=== PATIENT | female | born 1995 | race African-American/Black ===

== ENCOUNTER 2017-06-14 07:59 | Observation (INO) ==
[2017-06-14 08:39] LABS: Apearance,Urine Slightly Hazy (Clear); Bilirubin,Urine Negative (Negative); Blood, Urine Negative (Negative); Glucose,Urine (UA) Negative (Negative); Ketones,Urine Negative (Negative); Mucus,Urine Few /LPF (Occasional); Nitrite,Urine Negative (Negative); Protein,Urine 30 MG/DL; RBC,Urine 13 /HPF (0-4); Squamous Epithelial Cell,Urine Occasional /HPF (0-10); Urine Color Yellow (Yellow); Urine Specific Gravity 1.019 (1.001-1.035); Urine Urobilinogen < 2.0 EU/DL (0.2-1.0); WBC,Urine 29 /HPF (0-6)
[2017-06-14] MEDS ORDERED: ONDANSETRON 4 MG/2 ML VIAL IV PRN (09:09)
[2017-06-14] MEDS ORDERED: cefTRIAXone 1,000 MG in SODIUM CHLORIDE 0.9% 100 ML IV ONE (09:09)
[2017-06-14] MEDS: LACTATED RINGERS 1,000 ML IV SCH ×3 (09:20→21:36)
[2017-06-14] MEDS ORDERED: NIFEdipine 10 MG CAPSULE ONE (10:37)
[2017-06-14] MEDS: NIFEdipine 10 MG CAPSULE PO SCH ×4 (10:39→23:44)
--- NOTE | 2017-06-14 11:13 | OB/GYN History & Physical ---
History of Present Illness Chief complaint: Abdominal pain History of present illness: Ms. Ruiz is a 22 year old female at 34 wks who came in this morning with a 24 hour h/o abdominal pain N/ V. UTI noted on admission with uterine irritability. uneventful to this point. H/o twin delivery. Current with twins. Pt has received a dose of IV Rocephin, Zofran and IVF. Feels better. Advised her that I would like her to stay overnight to receive another dose and go home tomorrow with Macrobid. Amenable Home Medications Medication Instructions Recorded Confirmed Type Folic Acid Tab 1 mg PO QAM 01/28/17 06/14/17 History NIFEdipine CAP [Procardia] 1 tablet PO Q6HR 06/03/17 06/14/17 History Vit No.130/Iron/Folic 1 each PO DAILY 06/10/17 06/14/17 History [ Vitamins] Allergies Allergy/AdvReac Type Severity Reaction Status Date / Time No Known Allergies Allergy Verified 06/03/17 10:14 Medical,Surgical,& Family Hx - Medical History Other: History of: Miscellaneous Medical Problems (BREAST AUGMENTATION) - Surgical History Reproductive Surgeries: Surgical HX of;: Section (TWIN DELIVERY) - Family History Family History: Reports;: Family Diabetes - Social History Smoking Status: Never smoker Exam [employer] - Constitutional General appearance: normal weight, no acute distress - Head Head exam: Present: normal inspection, normocephalic - Eye Eye exam: Present: EOMI - Respiratory Respiratory exam: Present: clear to auscultation bilaterally - Cardiovascular Cardiovascular exam: Present: regular rate and rhythm - GI/Abdominal GI/Abdominal exam: Present: soft, other (Irritability) Assessment and Plan (1) 34 weeks gestation of Status: Acute Current Visit: Yes (2) Twin gestation in third trimester Status: Acute Current Visit: Yes (3) UTI (urinary tract infection) Status: Acute Assessment and plan: Additional dose of Rocephin in am Home tomorrow with Macrobid 23 hour obs Current Visit: Yes
[2017-06-14] MEDS ORDERED: MAGNESIUM HYDROXIDE SUSP 30 ML UDCUP PO ONE (11:49)
[2017-06-15] MEDS: NIFEdipine 10 MG CAPSULE PO SCH (06:22)
[2017-06-15] MEDS: LACTATED RINGERS 1,000 ML IV SCH (06:23)
[2017-06-15 08:28] VITALS: BP 106/69
[2017-06-15] MEDS ORDERED: cefTRIAXone 1,000 MG in SODIUM CHLORIDE 0.9% 100 ML IV ONE (09:00)
--- NOTE | 2017-06-15 09:40 | Discharge Summary ---
Hospital Course - Hospital Course Hospital Course: Pt has done well over the last 24 hours. Feels better, tolerating po. Will go home with oral therapy. Advised to drink 64-80 oz of water per day Diagnosis - Discharge Diagnosis (1) 34 weeks gestation of Status: Acute (2) Twin gestation in third trimester Status: Acute (3) UTI (urinary tract infection) Status: Acute Discharge Plan - Discharge Data Disposition: Disch To Home/Self Care Condition at Discharge: Stable Discharge Diet: advance to your usual diet Activity: resume usual activities as tolerated Hygiene: no restrictions Weight Bearing at Discharge: full weight bearing Driving: no restrictions - Discharge Medications New Nitrofurantoin Macro/[place] [Macrobid] 100 mg PO BID #14 capsule No Action Folic Acid Tab 1 mg PO QAM NIFEdipine CAP [Procardia] 1 tablet PO Q6HR Vit No.130/Iron/Folic [ Vitamins] 1 each PO DAILY - Follow Up or Referral - Forms/Instructions Exam - Constitutional Vitals: Period Temp Pulse Resp BP Sys/[place] Pulse Ox Last 24 Hr 97.5 F-98.3 F 95-113 18-18 89-106/50-69 General appearance: normal weight, no acute distress - Head Head exam: Present: normal inspection, normocephalic - Eye Eye exam: Present: EOMI - GI/Abdominal GI/Abdominal exam: Present: other (FHTs reassuring. Rare contraction) Discharge Results Procedures and tests throughout hospitalization: Pending Orders 06/14/17 Urine Culture Routine Labs on day of discharge: Preliminary micro results at discharge 06/14/17 Unknown Urine Culture - Preliminary Urine,Catheterized No Growth at 24 hours. DS: Provider Date of admission: 06/14/17 11:49 Primary care physician: Hank Moore MD Attending physician on admission: Reena Leslie MD Discharging clinician: Reena Leslie MD
== END 2017-06-15 10:20 | disposition home or self-care (01) ==
LOC: N.LDOUT 07:59 → N.LD 08:01 → INTOOBSV 11:49 → N.LD 11:49
PROVIDERS: ADMIT Obstetrics & Gynecology; ATTEND Obstetrics & Gynecology

== ENCOUNTER 2022-06-19 10:33 | Inpatient (IN) ==
[2022-06-19] MEDS ORDERED: TRANEXAMIC ACID 1,000 MG in SODIUM CHLORIDE 0.9% 100 ML IV PRN (11:18)
[2022-06-19] MEDS ORDERED: miSOPROStoL 200 MCG TABLET RECTAL PRN (11:18)
[2022-06-19] MEDS ORDERED: ONDANSETRON 4 MG/2 ML VIAL IV PRN ×2 (11:18→17:22)
[2022-06-19] MEDS ORDERED: LACTATED RINGERS 1,000 ML IV ONE (11:18)
[2022-06-19] MEDS ORDERED: CARBOPROST TROMETHAMINE 250 MCG/ML AMP IM PRN (11:18)
[2022-06-19] MEDS ORDERED: OXYTOCIN/LR 20 UNIT/1,000 ML BAG IV ONE ×2 (11:18→17:22)
[2022-06-19] MEDS ORDERED: METHYLERGONOVINE 0.2 MG/1 ML AMP IM PRN (11:18)
[2022-06-19] MEDS ORDERED: ePHEDrine 50 MG/ML VIAL IV PRN (11:18)
[2022-06-19] MEDS ORDERED: OXYTOCIN 10 UNIT/ML VIAL IM ONE (11:25)
[2022-06-19] MEDS ORDERED: OXYTOCIN/LR 30 UNIT/1,000 ML BAG IV ONE (11:25)
[2022-06-19] MEDS ORDERED: CITRIC ACID/SODIUM CITRATE 30 ML UDCUP PO ONE (11:45)
[2022-06-19 11:54] LABS: Eosinophils % 0.3 % (0.00-10.9); Hematocrit 30.8 VOL% (35.7-47.0); Hemoglobin 9.6 GM/DL (12.0-16.0); Immature Granulocytes % 0.5 %; Immature Granulocytes Absolute 0.03 #; Lymphocytes # 1.2 10*3/uL (1.4-4.0); Lymphocytes % 17.9 % (21.3-54.2); Mean Corpuscular HGB Conc 31.2 GM/DL (32-36); Mean Corpuscular Volume 80.8 FL (87-102); Mean Platelet Volume 11.4 FL (9.6-12.0); Monocytes # 0.7 10*3/uL (0.11-0.8); Monocytes % 9.8 % (1.7-12.7); Neutrophils % 71.5 % (38.7-73.9); Platelet Count 189 T/CUMM (130-400); Red Blood Count 3.81 MC/CUMM (3.8-5.5); Red Cell Distribution Width 14.4 % (9.3-17.3); White Blood Count 6.6 T/CUMM (4-12)
[2022-06-19] MEDS ORDERED: FAMOTIDINE 20 MG/2 ML VIAL IV ONE (12:00)
[2022-06-19 12:14] LABS: Alanine Aminotransferase 14 U/L (13-56); Albumin 2.5 G/DL (3.4-5.0); Alkaline Phosphatase 97 U/L (45-117); Aspartate Amino Transferase 9 U/L (0-37); Bilirubin,Total < 0.39 MG/DL (0.20-1.00); Blood Urea Nitrogen 11 MG/DL (7-18); Calcium 8.6 MG/DL (8.5-10.1); Carbon Dioxide 23 MMOL/L (21-32); Chloride 110 MMOL/L (98-107); Glucose 79 MG/DL (74-106); Osmolality,Calculated 272.7 MOS/KG (273-304); Potassium 3.7 MMOL/L (3.5-5.1); Sodium 138 MMOL/L (136-145); Total Protein 6.6 G/DL (6.4-8.2)
[2022-06-19] MEDS ORDERED: ceFAZolin 2,000 MG/50 ML DUPLEX IV ONE (12:30)
[2022-06-19] MEDS ORDERED: LACTATED RINGERS 1,000 ML IV PRN (13:00)
[2022-06-19] MEDS ORDERED: ONDANSETRON 4 MG/2 ML VIAL ONE (14:07)
[2022-06-19] MEDS ORDERED: BUPIVACAINE SPINAL 0.75% 2 ML AMP SPINAL ONE (14:07)
[2022-06-19] MEDS ORDERED: buprenorphine HCL 0.3 MG/ML VIAL ONE (14:08)
[2022-06-19] MEDS ORDERED: PHENYLEPHRINE 1 MG/10 ML SYRINGE IV ONE ×2 (16:32→16:46)
[2022-06-19] MEDS ORDERED: ACETAMINOPHEN INJ 1,000 MG/100 ML VIAL IV ONE (16:33)
[2022-06-19] MEDS ORDERED: KETOROLAC 30 MG/1 ML VIAL ONE (16:34)
[2022-06-19 16:50] LABS: Cord Arterial Blood HCO3 23.6 MMOL/L
[2022-06-19 16:53] LABS: Cord Venous Blood HCO3 24.8 MMOL/L; Cord Venous Blood PCO2 41.8 MMHG; Cord Venous Blood PO2 42.5
[2022-06-19] MEDS ORDERED: SIMETHICONE CHEW 80 MG TABLET PO PRN (17:22)
[2022-06-19] MEDS ORDERED: ACETAMINOPHEN 325 MG TABLET PO PRN (17:22)
[2022-06-19 17:36] LABS: Mucus,Urine Occasional /LPF (Occasional); RBC,Urine 4 /HPF (0-4); Squamous Epithelial Cell,Urine Occasional /HPF (0-10)
[2022-06-19 17:37] LABS: Bilirubin,Urine Negative (Negative); Blood, Urine Negative (Negative); Glucose,Urine (UA) Negative (Negative); Ketones,Urine Negative (Negative); Nitrite,Urine Negative (Negative); Protein,Urine Negative (Negative); Urine Appearance Clear (Clear); Urine Color Yellow (Yellow); Urine Urobilinogen 0.2 eU/dL (<2.0)
[2022-06-19] MEDS ORDERED: RHO(D) IMMUNE GLOBULIN 300 MCG SYRINGE IM ONE (17:45)
[2022-06-19] MEDS ORDERED: LACTATED RINGERS 1,000 ML IV SCH (18:00)
[2022-06-19] MEDS: DOCUSATE SODIUM 100 MG CAPSULE PO SCH (21:10)
[2022-06-19] MEDS: KETOROLAC 30 MG/1 ML VIAL IV SCH (23:23)
[2022-06-19] MEDS: ACETAMINOPHEN 500 MG TABLET PO PRN (23:26)
[2022-06-20] MEDS: KETOROLAC 30 MG/1 ML VIAL IV SCH ×2 (04:45→12:22)
[2022-06-20] MEDS: ACETAMINOPHEN 500 MG TABLET PO PRN ×2 (04:46→12:29)
[2022-06-20 06:20] LABS: Basophils % 0.1 % (0.0-0.8); Eosinophils % 0.5 % (0.00-10.9); Hematocrit 28.3 VOL% (35.7-47.0); Hemoglobin 8.6 GM/DL (12.0-16.0); Immature Granulocytes % 0.5 %; Immature Granulocytes Absolute 0.04 #; Lymphocytes # 1.5 10*3/uL (1.4-4.0); Lymphocytes % 19.3 % (21.3-54.2); Mean Corpuscular HGB Conc 30.4 GM/DL (32-36); Mean Corpuscular Volume 81.3 FL (87-102); Mean Platelet Volume 11.4 FL (9.6-12.0); Monocytes # 0.9 10*3/uL (0.11-0.8); Monocytes % 11.2 % (1.7-12.7); Neutrophils % 68.4 % (38.7-73.9); Platelet Count 150 T/CUMM (130-400); Red Blood Count 3.48 MC/CUMM (3.8-5.5); Red Cell Distribution Width 14.1 % (9.3-17.3); White Blood Count 7.9 T/CUMM (4-12)
[2022-06-20] MEDS: MULTIVITAMIN (PRENATAL) TABLET PO SCH (08:24)
[2022-06-20] MEDS: IBUPROFEN 800 MG TABLET PO PRN ×2 (08:25→16:01)
[2022-06-20] MEDS: DOCUSATE SODIUM 100 MG CAPSULE PO SCH ×2 (08:25→21:10)
[2022-06-20] MEDS: MAGNESIUM HYDROXIDE SUSP 30 ML UDCUP PO PRN ×2 (12:28→21:10)
[2022-06-21] MEDS ORDERED: METOCLOPRAMIDE 10 MG TABLET PO SCH (08:00)
[2022-06-21] MEDS: DOCUSATE SODIUM 100 MG CAPSULE PO SCH (08:10)
[2022-06-21] MEDS: MAGNESIUM HYDROXIDE SUSP 30 ML UDCUP PO PRN (08:10)
[2022-06-21] MEDS: MULTIVITAMIN (PRENATAL) TABLET PO SCH (08:10)
[2022-06-21 09:56] VITALS: BP 104/64
== END 2022-06-21 13:00 | disposition home or self-care (01) | DRG 540 ==
LOC: N.LD 10:33 → N.OB 06-20 09:20
PROVIDERS: ADMIT Obstetrics & Gynecology; ATTEND Obstetrics & Gynecology
PROC: LDCSECT (ICD-10-PCS; 2022-06-19 16:00)